=== PATIENT | male | born 1965 | race Caucasian/White ===

== ENCOUNTER 2016-11-07 17:57 | Inpatient (IN) | payer OTHER ==
[2016-11-07] MEDS ORDERED: traMADol HCL 50 MG TABLET PO ONE (18:13)
[2016-11-07] MEDS ORDERED: KETOROLAC TROMETHAMINE 60 MG/2 ML VIAL IM ONE (18:13)
--- NOTE | 2016-11-07 18:18 | PDOC ---
History of Present Illness - General Chief Complaint: Injury Stated Complaint: WORK INJURY Time Seen by Provider: 11/07/16 18:07 History Source: Patient - History of Present Illness Occurred: reports: just prior to arrival Pain Location: reports: back, lower extremity Method of Injury: Yes: direct blow, other Past History - Past Medical History Allergies/Adverse Reactions: Allergies Allergy/AdvReac Type Severity Reaction Status Date / Time No Known Allergies Allergy Verified 11/07/16 18:01 Home Medications: Ambulatory Orders Aspirin [ASA -] 81 mg PO DAILY 02/15/15 Atorvastatin Ca [Lipitor] 80 mg PO HS 02/15/15 Clopidogrel Bisulfate [Clopidogrel] 75 mg PO DAILY 02/15/15 Enalapril Maleate [Vasotec -] 10 mg PO DAILY 02/15/15 Folic Acid 1 mg PO DAILY 02/15/15 Gabapentin 300 mg PO DAILY 02/15/15 Glipizide [Glipizide ER] 5 mg PO DAILY 02/15/15 Hydrochlorothiazide [Hctz -] 25 mg PO DAILY 02/15/15 Insulin Glargine,Hum.rec.anlog [Lantus (10mL VIAL) -] 20 units SQ BID 02/15/15 Metoprolol Tartrate [Lopressor -] 25 mg PO DAILY 02/15/15 Omeprazole [Prilosec] 40 mg PO DAILY 02/15/15 Naproxen [Naprosyn -] 500 mg PO BID #60 tablet 11/09/16 Cardiac Disorders: Yes 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) Diabetes: Yes Disorders: Yes (kidney stones) HTN: Yes Hypercholesterolemia: Yes - Surgical History Appendectomy: Yes Cardiac Surgery: Yes (STENTS) - Psycho/Social/Smoking Cessation Hx Anxiety: No Suicidal Ideation: No Smoking History: Never smoked Have you smoked in the past 12 months: No Number of Cigarettes Smoked Daily: 10 If you are a former smoker, when did you quit?: 2013 Information on smoking cessation initiated: No Hx Alcohol Use: No Drug/Substance Use Hx: No Substance Use Type: None Hx Substance Use Treatment: No Review of Systems - Review of Systems Musculoskeletal: Yes: Back Pain, Joint Pain, Joint Swelling Neurological: No: Numbness, Tingling, Weakness *Physical Exam - Vital Signs Last Vital Signs Temp Pulse Resp BP Pulse Ox 98.6 F 90 18 146/93 100 11/07/16 18:01 11/07/16 18:01 11/07/16 18:01 11/07/16 18:01 11/07/16 18:01 - Physical Exam Comments: 11/07/16 20:40 Appears very uncomfortable, lying on stretcher and unable to sit/stand up General Appearance: Yes: Appropriately Dressed, Severe Distress HEENT: positive: Normal Voice Neck: positive: Supple Respiratory/Chest: negative: Respiratory Distress Musculoskeletal: positive: Other (ttp over R lower back) Extremity: positive: Swelling (minimal swelling w/ ecchymosis over distal R 4th and 5th metatarsal) Integumentary: positive: Dry, Warm Neurologic: positive: Fully Oriented, Alert, Normal Mood/Affect, Motor Strength 07/26 ED Treatment Course - LABORATORY CBC & Chemistry Diagram: 11/07/16 22:25 11/07/16 22:25 - RADIOLOGY Radiology Studies Ordered: Category Date Time Status FOOT-RIGHT [RAD] Stat Radiology 11/07/16 18:13 Ordered SPINE-LUMBAR SACRAL [RAD] Stat Radiology 11/07/16 18:12 Ordered Medical Decision Making - Medical Decision Making 11/07/16 18:14 51 yo M, h/o DM and HTN here w/ severe lower back pain and foot pain s/p injury at work today. 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 Developed severe R lower back pain immediately and hasn't been able to move or ambulate since. No LE weakness, saddle anesthesia or B/B incontinence. Also reports pain to R foot See exam Back injury w/ inability to ambulate No LE weakness, saddle anesthesia or incontinence to suspect cauda equina at this time -pain control -XR r/o compression fx and foot Crush injury to R foot -pain control -XR 11/07/16 18:18 11/07/16 18:55 XRs negative for fracture. Pt given tramadol and flexeril, will reassess 11/07/16 19:34 Pt continues to c/o severe back pain with movement. Neuro remains intact. Will continue to manage pain and reassess 11/07/16 20:00 11/07/16 20:00 Pt not better w/ morphine. May need further imaging and admission for pain control at this point. Pt signed out to JACOB Arevalo. 11/07/16 20:41 11/12/16 11:48 11/12/16 11:49 *DC/Admit/Observation/Transfer Diagnosis at time of Disposition: Intractable back pain - Discharge Dispostion Disposition: HOME Condition at time of disposition: Good - Prescriptions
[2016-11-07] MEDS ORDERED: CYCLOBENZAPRINE HCL 10 MG TABLET (FP) PO ONE (18:34)
[2016-11-07] MEDS ORDERED: CYCLOBENZAPRINE HCL 10 MG TABLET (FP) ONE (18:40)
[2016-11-07] MEDS ORDERED: morphine CARPU-JECT 4 MG/1 ML DISP.SYRIN IM ONE (19:16)
[2016-11-07] MEDS ORDERED: morphine CARPU-JECT 4 MG/1 ML DISP.SYRIN ONE (19:32)
[2016-11-07] MEDS ORDERED: IBUPROFEN 400 MG TABLET (FP) PO ONE (20:00)
--- NOTE | 2016-11-07 20:13 | PDOC ---
*Physical Exam - Vital Signs Last Vital Signs Temp Pulse Resp BP Pulse Ox 98.6 F 90 18 146/93 100 11/07/16 18:01 11/07/16 18:01 11/07/16 18:01 11/07/16 18:01 11/07/16 18:01 - Physical Exam Comments: 11/07/16 20:13 Sign-out received from fast tract provider Titi. Pt interviewed and examined. Ancillary studies reviewed. Patient is a 51 yo M with hx of HTN, HLD, DM, CVA (with residual left arm and leg numbness), and kidney stones. -0.5 mg Dilaudid IV Awaiting lumbar spine CT. CT spine negative for fracture or malignment. Patient reassessed; still with significant pain and is unable to ambulate. Will admit for intractable back pain. 11/08/16 00:16 Patient's PCP is Dr. Dmitry Maria, Dr. Fortunato valenzuela. ED Treatment Course - LABORATORY CBC & Chemistry Diagram: 11/07/16 22:25 11/07/16 22:25 - RADIOLOGY Radiology Studies Ordered: Category Date Time Status LUMBAR SPINE CT W/O CONTRAST [CT] Stat CT Scan 11/07/16 19:58 Ordered - Medications Given in the ED: ED Medications Discontinued Medications Generic Name Dose Route Start Last Admin Trade Name Kennedyq PRN Reason Stop Dose Admin Cyclobenzaprine HCl 10 mg 11/07/16 18:34 11/07/16 18:42 Flexeril - PO 11/07/16 18:35 10 mg ONCE ONE Administration Morphine Sulfate 4 mg 11/07/16 19:16 11/07/16 19:37 Morphine Injection - IM 11/07/16 19:17 4 mg ONCE ONE Administration Tramadol HCl 50 mg 11/07/16 18:13 11/07/16 18:19 Ultram - PO 11/07/16 18:14 50 mg ONCE ONE Administration *DC/Admit/Observation/Transfer Diagnosis at time of Disposition: Intractable back pain - Discharge Dispostion Admit: Yes
[2016-11-07] MEDS ORDERED: HYDROmorphone HCL CARPU-JECT 1 MG/1 ML DISP.SYRIN IVPUSH ONE ×2 (20:27→23:52)
[2016-11-07 22:34] LABS: BASOPHIL 1.2 % (0-2.0); EOSINOPHIL 10.3 % (0-4.5); MCH 30.1 pg (25.7-33.7); MCHC 34.8 g/dl (32.0-35.9); MEAN CELL VOLUME 86.7 fl (80-96); MEAN PLT VOLUME 8.1 fl (7.5-11.1); NEUTROPHILS 53.8 % (42.8-82.8); PLATELET COUNT 280 K/MM3 (134-434); WHITE BLOOD COUNT 10.8 K/mm3 (4.0-10.0)
[2016-11-07 23:01] LABS: ALBUMIN 4.1 g/dl (3.4-5.0); ALK PHOS 74 U/L (45-117); ANION GAP 7 (8-16); BILIRUBIN,TOTAL 0.3 mg/dL (0.2-1.0); CALCIUM 9.1 mg/dL (8.5-10.1); CO2 28 mmol/L (21-32); CREATININE 1.2 mg/dL (0.7-1.3); GLUCOSE,RANDOM 260 mg/dL (74-106); SGOT/AST 13 U/L (15-37); SGPT/ALT 41 U/L (12-78); TOT PROT 7.3 g/dl (6.4-8.2)
[2016-11-08] MEDS ORDERED: HYDROmorphone HCL CARPU-JECT 1 MG/1 ML DISP.SYRIN ONE (00:21)
[2016-11-08 03:19] VITALS: BMI 33.5
--- NOTE | 2016-11-08 09:44 | CONSULT ---
Consult - text type - Consultation Consultation Note: Neurology History of Present Illness 51 yo M, h/o DM and HTN here w/ severe lower back pain and foot pain s/p injury at work today. 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 Developed severe R lower back pain immediately and hasn't been able to move or ambulate since. No LE weakness, saddle anesthesia or B/B incontinence. Has been getting pain medication and reports improvement in pain. Is able to slowly sit up and then ambulate with caution. Reviewed CT L spine and did not show fracture or dislocation. Past History - Past Medical History Allergies/Adverse Reactions: Allergies Allergy/AdvReac Type Severity Reaction Status Date / Time No Known Allergies Allergy Verified 11/07/16 18:01 Home Medications: Ambulatory Orders Aspirin [ASA -] 81 mg PO DAILY 02/15/15 Atorvastatin Ca [Lipitor] 80 mg PO HS 02/15/15 Clopidogrel Bisulfate [Clopidogrel] 75 mg PO DAILY 02/15/15 Enalapril Maleate [Vasotec -] 10 mg PO DAILY 02/15/15 Folic Acid 1 mg PO DAILY 02/15/15 Gabapentin 300 mg PO DAILY 02/15/15 Glipizide [Glipizide ER] 5 mg PO DAILY 02/15/15 Hydrochlorothiazide [Hctz -] 25 mg PO DAILY 02/15/15 Insulin Glargine,Hum.rec.anlog [Lantus (10mL VIAL) -] 20 units SQ BID 02/15/15 Metoprolol Tartrate [Lopressor -] 25 mg PO DAILY 02/15/15 Omeprazole [Prilosec] 40 mg PO DAILY 02/15/15 Cardiac Disorders: Yes 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) Diabetes: Yes Disorders: Yes (kidney stones) HTN: Yes Hypercholesterolemia: Yes - Surgical History Appendectomy: Yes Cardiac Surgery: Yes (STENTS) - Psycho/Social/Smoking Cessation Hx Anxiety: No Suicidal Ideation: No Smoking History: Never smoked Have you smoked in the past 12 months: No Number of Cigarettes Smoked Daily: 10 If you are a former smoker, when did you quit?: 2013 Information on smoking cessation initiated: No Hx Alcohol Use: No Drug/Substance Use Hx: No Substance Use Type: None Hx Substance Use Treatment: No Review of Systems - Review of Systems Musculoskeletal: Yes: Back Pain, Joint Pain, Joint Swelling Neurological: No: Numbness, Tingling, Weakness All others negative *Physical Exam - Vital Signs Last Vital Signs Temp Pulse Resp BP Pulse Ox 98.6 F 90 18 146/93 100 11/07/16 18:01 11/07/16 18:01 11/07/16 18:01 11/07/16 18:01 11/07/16 18:01 Appears very uncomfortable, lying on stretcher and unable to sit/stand up General Appearance: Yes: Appropriately Dressed, Severe Distress HEENT: positive: Normal Voice Neck: positive: Supple Respiratory/Chest: negative: Respiratory Distress Musculoskeletal: positive: Other (ttp over R lower back) Extremity: positive: Swelling (minimal swelling w/ ecchymosis over distal R 4th and 5th metatarsal) Integumentary: positive: Dry, Warm Neurologic: positive: Fully Oriented, Alert, Normal Mood/Affect, Motor Strength 5/5 with best effort, sensory intact, CN normal CBCD WBC 10.8 K/mm3 (4.0-10.0) H 11/07/16 22:25 RBC 4.41 M/mm3 (4.00-5.60) 11/07/16 22:25 Hgb 13.3 GM/dL (11.7-16.9) 11/07/16 22:25 Hct 38.2 % (35.4-49) 11/07/16 22:25 MCV 86.7 fl (80-96) 11/07/16 22:25 MCHC 34.8 g/dl (32.0-35.9) 11/07/16 22:25 RDW 13.0 % (11.9-15.9) 11/07/16 22:25 Plt Count 280 K/MM3 (134-434) 11/07/16 22:25 MPV 8.1 fl (7.5-11.1) 11/07/16 22:25 CMP Sodium 134 mmol/L (136-145) L 11/07/16 22:25 Potassium 3.9 mmol/L (3.5-5.1) 11/07/16 22:25 Chloride 99 mmol/L (98-107) 11/07/16 22:25 Carbon Dioxide 28 mmol/L (21-32) D 11/07/16 22:25 Anion Gap 7 (8-16) L 11/07/16 22:25 BUN 26 mg/dL (7-18) H D 11/07/16 22:25 Creatinine 1.2 mg/dL (0.7-1.3) D 11/07/16 22:25 Creat Clearance w eGFR > 60 (>60) 11/07/16 22:25 Calcium 9.1 mg/dL (8.5-10.1) 11/07/16 22:25 Total Bilirubin 0.3 mg/dL (0.2-1.0) 11/07/16 22:25 AST 13 U/L (15-37) L 11/07/16 22:25 ALT 41 U/L (12-78) D 11/07/16 22:25 Alkaline Phosphatase 74 U/L (45-117) D 11/07/16 22:25 Total Protein 7.3 g/dl (6.4-8.2) 11/07/16 22:25 Albumin 4.1 g/dl (3.4-5.0) 11/07/16 22:25 Medical Decision Making 51 yo M, h/o DM and HTN here w/ severe lower back pain and foot pain s/p injury at work today. 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 Developed severe R lower back pain immediately and hasn't been able to move or ambulate since. No LE weakness, saddle anesthesia or B/B incontinence. Has been getting pain medication and reports improvement in pain. Is able to slowly sit up and then ambulate with caution. Reviewed CT L spine and did not show fracture or dislocation. -Will benefit from physical therapy, inpatient if able, but outpatient recommended -Pain medication/pain mgmt consult to optimize regiment but avoid polypharmacy -Agree with Cyclobenzaprine and gabapentin, defer opiods to pain mgmt physician -L spine CT reviewed, will not require MRI at this point -Fall precautions -Monitor glucose, goal A1C < 6, continue Insulin, glipizide -BP control, goal < 140/90, continue enalapril
[2016-11-08] MEDS ORDERED: PT OWN MED DRAWER 7, Y5N ONE (10:13)
[2016-11-08] MEDS: METOPROLOL TARTRATE 25 MG TABLET (FP) PO SCH (10:14)
[2016-11-08] MEDS: HYDROCHLOROTHIAZIDE 25 MG TABLET (FP) PO SCH (10:14)
[2016-11-08] MEDS: GABAPENTIN 300 MG CAPSULE (FP) PO SCH (10:14)
[2016-11-08] MEDS: ASPIRIN 81 MG CHEWABLE TABLETS PO SCH (10:14)
[2016-11-08] MEDS: PANTOPRAZOLE 40 MG TABLET (FP) PO SCH (10:14)
[2016-11-08] MEDS: CLOPIDOGREL BISULFATE 75 MG TABLET (FP) PO SCH (10:14)
[2016-11-08] MEDS: FOLIC ACID 1 MG TABLET (FP) PO SCH (10:14)
[2016-11-08] MEDS: INSULIN DETEMIR 100 UNITS/ML MDV SQ SCH ×2 (10:15→16:32)
[2016-11-08] MEDS: morphine CARPU-JECT 4 MG/1 ML DISP.SYRIN IM PRN (10:46)
[2016-11-08] MEDS ORDERED: INSULIN (NOVOLOG) ASPART 100 UNITS/ML 10ML VIAL ONE ×3 (10:54→21:14)
[2016-11-08] MEDS: INSULIN SLIDING SCALE (NOVOLOG) 1 VIAL SQ SCH ×3 (10:55→21:16)
[2016-11-08] MEDS: ENALAPRIL MALEATE 10 MG TABLET (FP) PO SCH (10:58)
[2016-11-08] MEDS: glipiZIDE-XL 5 MG TAB.ER.24 PO SCH (10:58)
--- NOTE | 2016-11-08 18:57 | CONSULT ---
Consult Consult Specialty:: back pain Referred by:: dr marie - History of Present Illness Chief Complaint: back pain History of Present Illness: 51 yo M, h/o DM and HTN here w/ severe lower back pain and foot pain s/p injury at work today. 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 Developed severe R lower back pain immediately and hasn't been able to move or ambulate since. CT scan shows no fractures or herniated discs Currently he reports feeling slightly better. - Alcohol/Substance Use Hx Alcohol Use: No - Smoking History Smoking history: Never smoked Have you smoked in the past 12 months: No Aproximately how many cigarettes per day: 10 If you are a former smoker, when did you quit?: 2013 Home Medications - Allergies Allergies/Adverse Reactions: Allergies Allergy/AdvReac Type Severity Reaction Status Date / Time No Known Allergies Allergy Verified 11/07/16 18:01 - Home Medications Home Medications: Ambulatory Orders Aspirin [ASA -] 81 mg PO DAILY 02/15/15 Atorvastatin Ca [Lipitor] 80 mg PO HS 02/15/15 Clopidogrel Bisulfate [Clopidogrel] 75 mg PO DAILY 02/15/15 Enalapril Maleate [Vasotec -] 10 mg PO DAILY 02/15/15 Folic Acid 1 mg PO DAILY 02/15/15 Gabapentin 300 mg PO DAILY 02/15/15 Glipizide [Glipizide ER] 5 mg PO DAILY 02/15/15 Hydrochlorothiazide [Hctz -] 25 mg PO DAILY 02/15/15 Insulin Glargine,Hum.rec.anlog [Lantus (10mL VIAL) -] 20 units SQ BID 02/15/15 Metoprolol Tartrate [Lopressor -] 25 mg PO DAILY 02/15/15 Omeprazole [Prilosec] 40 mg PO DAILY 02/15/15 Physical Exam Vital Signs: Vital Signs Temperature 97.8 F 11/08/16 14:00 Pulse Rate 60 11/08/16 14:00 Respiratory Rate 17 11/08/16 14:00 Blood Pressure 101/56 11/08/16 14:00 O2 Sat by Pulse Oximetry (%) 97 11/08/16 09:00 Musculoskeletal: Yes: Back Pain Assessment/Plan Lumbar sprain injury 1. Physical therapy x4 weeks 2. NSAIDs prn pain 3. Muscle relaxant prn pain 4. If patient continues to have pain after PT for 4 weeks consider lumbar spine facet blocks.
--- NOTE | 2016-11-08 19:58 | HP ---
Admitting History and Physical - Admission History of Present Illness: Pt is a 51 y/o male w/ PMH significant for HTN, HLD, DM, CVA (with residual left arm and leg numbness), and kidney stones. Pt was at work when and states a piece of heavy machinery weighing ~500 pounds fell and that he attempted to catch it with hands briefly but that it eventually fell onto R foot. Developed severe R lower back pain immediately and hasn't been able to move or ambulate since. CT scan of LS pine was done wc did not show dominic cute pathology. 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 Cardiovascular: Yes: HTN, Hyperlipdemia Endocrine: Yes: Diabetes Mellitus - Smoking History Smoking history: Never smoked Have you smoked in the past 12 months: No Aproximately how many cigarettes per day: 10 If you are a former smoker, when did you quit?: 2013 - Alcohol/Substance Use Hx Alcohol Use: No Home Medications - Allergies Allergies/Adverse Reactions: Allergies Allergy/AdvReac Type Severity Reaction Status Date / Time No Known Allergies Allergy Verified 11/07/16 18:01 - Home Medications Home Medications: Ambulatory Orders Aspirin [ASA -] 81 mg PO DAILY 02/15/15 Atorvastatin Ca [Lipitor] 80 mg PO HS 02/15/15 Clopidogrel Bisulfate [Clopidogrel] 75 mg PO DAILY 02/15/15 Enalapril Maleate [Vasotec -] 10 mg PO DAILY 02/15/15 Folic Acid 1 mg PO DAILY 02/15/15 Gabapentin 300 mg PO DAILY 02/15/15 Glipizide [Glipizide ER] 5 mg PO DAILY 02/15/15 Hydrochlorothiazide [Hctz -] 25 mg PO DAILY 02/15/15 Insulin Glargine,Hum.rec.anlog [Lantus (10mL VIAL) -] 20 units SQ BID 02/15/15 Metoprolol Tartrate [Lopressor -] 25 mg PO DAILY 02/15/15 Omeprazole [Prilosec] 40 mg PO DAILY 02/15/15 Naproxen [Naprosyn -] 500 mg PO BID #60 tablet 11/09/16 Family Disease History - Family Disease History Family History: Unremarkable Review of Systems - Review of Systems Constitutional: reports: No Symptoms Eyes: reports: No Symptoms HENT: reports: No Symptoms Neck: reports: No Symptoms Cardiovascular: reports: No Symptoms Respiratory: reports: No Symptoms Gastrointestinal: reports: No Symptoms Physical Examination Vital Signs: Vital Signs Temperature 97.8 F 11/08/16 14:00 Pulse Rate 60 11/08/16 14:00 Respiratory Rate 17 11/08/16 14:00 Blood Pressure 101/56 11/08/16 14:00 O2 Sat by Pulse Oximetry (%) 97 11/08/16 09:00 Constitutional: Yes: No Distress HENT: Yes: WNL, Atraumatic Neck: Yes: WNL, Supple Cardiovascular: Yes: WNL, Regular Rate and Rhythm Respiratory: Yes: WNL, Regular, CTA Bilaterally Gastrointestinal: Yes: WNL, Normal Bowel Sounds, Soft Extremities: Yes: Other ((+) abrasion w/ minimal swelling rt foot) Neurological: Yes: WNL, Alert, Oriented ...Motor Strength: WNL Problem List - Problems (1) Intractable back pain Assessment/Plan: Pain management If no improvement may need MRI LS spine Pain management/neuro consults Code(s): M54.9 - DORSALGIA, UNSPECIFIED (2) Diabetes Assessment/Plan: Cont meds Code(s): E11.9 - TYPE 2 DIABETES MELLITUS WITHOUT COMPLICATIONS (3) HTN (hypertension) Assessment/Plan: Cont antihypertensives BP stable Code(s): I10 - ESSENTIAL (PRIMARY) HYPERTENSION (4) Hyperlipidemia Code(s): E78.5 - HYPERLIPIDEMIA, UNSPECIFIED
[2016-11-08] MEDS ORDERED: ATORVASTATIN CA 80 MG TABLET (FP) PO SCH (22:00)
[2016-11-09] MEDS: INSULIN SLIDING SCALE (NOVOLOG) 1 VIAL SQ SCH ×3 (06:30→17:13)
[2016-11-09] MEDS: INSULIN DETEMIR 100 UNITS/ML MDV SQ SCH ×2 (06:31→17:13)
[2016-11-09] MEDS ORDERED: INSULIN (NOVOLOG) ASPART 100 UNITS/ML 10ML VIAL ONE ×3 (06:33→17:33)
[2016-11-09] MEDS ORDERED: PT OWN MED DRAWER 7, Y5N ONE (10:16)
[2016-11-09] MEDS: glipiZIDE-XL 5 MG TAB.ER.24 PO SCH (10:19)
[2016-11-09] MEDS: ENALAPRIL MALEATE 10 MG TABLET (FP) PO SCH (10:19)
[2016-11-09] MEDS: GABAPENTIN 300 MG CAPSULE (FP) PO SCH (10:19)
[2016-11-09] MEDS: HYDROCHLOROTHIAZIDE 25 MG TABLET (FP) PO SCH (10:19)
[2016-11-09] MEDS: PANTOPRAZOLE 40 MG TABLET (FP) PO SCH (10:19)
[2016-11-09] MEDS: FOLIC ACID 1 MG TABLET (FP) PO SCH (10:19)
[2016-11-09] MEDS: METOPROLOL TARTRATE 25 MG TABLET (FP) PO SCH (10:19)
[2016-11-09] MEDS: CLOPIDOGREL BISULFATE 75 MG TABLET (FP) PO SCH (10:19)
[2016-11-09] MEDS: ASPIRIN 81 MG CHEWABLE TABLETS PO SCH (10:22)
[2016-11-09 14:52] VITALS: BP 102/58; PULSE 63; TEMP 98.1
[2016-11-09] MEDS: morphine CARPU-JECT 4 MG/1 ML DISP.SYRIN IM PRN (16:11)
== END 2016-11-09 20:25 | disposition home or self-care (01) | DRG 347 ==
LOC: JERFT 17:57 → JERBED 11-08 00:47 → UNDOADMIN 11-08 00:53 → JERBED 11-08 00:53 → J6S 11-08 03:32
PROVIDERS: ADMIT Internal Medicine; ATTEND Internal Medicine
DX: S33.5XXA Sprain of ligaments of lumbar spine, initial encounter (principal); E11.9 Type 2 diabetes mellitus without complications; I10 Essential (primary) hypertension; E78.5 Hyperlipidemia, unspecified; M54.89 Other dorsalgia; N20.0 Calculus of kidney; Z86.73 Personal history of transient ischemic attack (TIA), and cerebral infarction without residual deficits; W20.8XXA Other cause of strike by thrown, projected or falling object, initial encounter; Y93.89 Activity, other specified; Y92.89 Other specified places as the place of occurrence of the external cause
CPT/HCPCS: 36415; 72100-TC; 72131-TC; 73630-TC-RT; 80053; 85025; 99283-25

== ENCOUNTER 2017-09-08 10:47 | Emergency (ER) | payer OTHER ==
[2017-09-08 11:03] VITALS: TEMP 98.2; BMI 33.7
[2017-09-08] MEDS ORDERED: SODIUM CHLORIDE 0.9% 1000 ML INFUS.BAG IV ONE (11:21)
[2017-09-08] MEDS ORDERED: ACETAMINOPHEN 1000 MG/100 ML VIAL (NON FORMULARY) IVPB ONE (11:36)
--- NOTE | 2017-09-08 11:52 | PDOC ---
Attending Attestation - [facility] HPI: 09/08/17 11:57 The patient is a 52 year old male, with a significant past medical history of diabetes, hypertension, hyperlipidemia, CAD(s/p stents), CVA(with residual left arm and leg numbness), and kidney stones, who presents to the emergency department with abdominal pain, nausea, vomiting, and diarrhea for approximately 1 week. Patient reports initially he had nausea and episodes of nonbloody/nonbilious vomiting. However, patient reports he then developed watery nonbloody diarrhea for the past several days. He reports up to 10 episodes of diarrhea daily. He reports abdominal pain for the past 5 days, which he reports is epigastric/RUQ. He denies any associated melena, or hematochezia. He denies any recent fever, chills, headache, or dizziness. He denies any dysuria, hematuria, frequency, or urgency. He denies any chest pain, shortness of breath, diaphoresis, or palpitations. He denies any recent travel or sick contacts. Allergies: NKDA Past Surgical History: Cardiac stents, Appendectomy Social History: Former smoker. No ETOH or recreational drug use. - Physicial Exam PE: 09/08/17 11:57 GENERAL: Awake, alert, and fully oriented, in no acute distress HEAD: No signs of trauma EYES: PERRLA, EOMI, sclera anicteric, conjunctiva clear ENT: Auricles normal inspection, hearing grossly normal, nares patent. Moist mucosa NECK: Normal ROM, supple, no lymphadenopathy, JVD, or masses LUNGS: Breath sounds equal, clear to auscultation bilaterally. No wheezes, and no crackles HEART: Regular rate and rhythm, normal S1 and S2, no murmurs, rubs or gallops ABDOMEN: +RUQ/epigastric tenderness. Soft, normoactive bowel sounds. No guarding, no rebound. No masses RECTAL: Defer to resident note. EXTREMITIES: Normal range of motion, no edema. No clubbing or cyanosis. No cords, erythema, or tenderness. DP/PT pulses 2+ and symmetric. Warm and well perfused. NEUROLOGICAL: Moves all extremities. Normal speech, normal gait SKIN: Warm, Dry, normal turgor, no rashes or lesions noted. - Medical Decision Making 09/08/17 11:57 Documentation prepared by Clif Shook, acting as medical technologist chemistry for Sofy Ashraf MD. <Clif Shook - Last Filed: 09/08/17 17:24> - Resident Resident Name: RoyerOsiris - ED Attending Attestation I have performed the following: I have examined & evaluated the patient, The case was reviewed & discussed with the resident, I agree w/resident's findings & plan, Exceptions are as noted - Medical Decision Making 09/08/17 14:3 pt with n/v diarrhea, vomiting resolved. epigastric ruq abd pain. started 1 week ago. vomiting only on day one. no f/c no sick contacts. no travel. no abx. differential gastritis, pancreatitis, cholecystitis cholelithiasis, colitis. viral syndrome. dehydration, electrolyte abnomrality. plan labs lipase. bedside gb us, antiemetics. iv hydration ua. focused ED us RUQ performed, indication pain, vomiting gb scanned in two planes. wall normal no edema or wall thickening. cbd normal no dilation. small stones < 2mm in size, neg sonographic camargo's impression: small cholelithiasis. plan ct a/p evalute cuase of pain. <Sofy Ashraf - Last Filed: 09/08/17 17:29> Heart Score/ECG Review #1 General ECG Interpretation: Sinus Rhythm, Normal Rate (70), Normal Intervals, No acute ischemic changes (TWI III only.) <Sofy Ashraf - Last Filed: 09/08/17 17:29> ED Treatment Course - LABORATORY CBC & Chemistry Diagram: 09/08/17 12:00 09/08/17 12:00 - ADDITIONAL ORDERS Additional order review: Laboratory Results 09/08/17 09/08/17 09/08/17 13:02 13:02 12:00 PT with INR 12.50 INR 1.11 Sodium 137 Potassium 4.1 Chloride 103 Carbon Dioxide 26 Anion Gap 8 BUN 9 D Creatinine 0.9 D Creat Clearance w eGFR > 60 Random Glucose 146 H D Calcium 8.7 Total Bilirubin 0.3 AST 13 L ALT 25 D Alkaline Phosphatase 63 Total Protein 6.9 Albumin 3.4 Lipase 106 Blood Type A POSITIVE Antibody Screen Negative 09/08/17 12:00 RBC 4.44 MCV 88.5 MCHC 33.3 RDW 13.8 MPV 7.9 Neutrophils % 71.4 D Lymphocytes % 12.9 D Monocytes % 10.2 Eosinophils % 5.1 H Basophils % 0.4 - RADIOLOGY Radiograph Interpretation: 09/08/17 17:25 EXAM: CT Abdomen and Pelvis INTERPRETED BY: Dr. Quick REVIEWED BY: Dr. Ashraf IMPRESSION: Diffuse colitis, worse in the right colon and with pericolonic inflammatory changes extending to near the gallbladder. The gallbladder itself appears intrinsically normal. No free air or abscess identified. Fatty liver. Probable splenic cysts. Other findings as above. Clinical correlation advised. EXAM: CXR INTERPRETED BY: Dr. Sandoval REVIEWED BY: Dr. Ashraf IMPRESSION: No acute pathology. No significant change since 2014 exam - Medications Given in the ED: ED Medications Discontinued Medications Generic Name Dose Route Start Last Admin Trade Name Mitzi PRN Reason Stop Dose Admin Acetaminophen 1,000 mg 09/08/17 11:36 09/08/17 12:23 Ofirmev Injection - IVPB 09/08/17 11:37 1,000 mg ONCE ONE Administration Famotidine/Sodium Chloride 20 mg in 50 mls @ 100 mls/hr 09/08/17 13:45 16:36 Pepcid 20 Mg Premixed Ivpb - IVPB 09/08/17 14:14 100 mls/hr ONCE ONE Administration Sodium Chloride 1,000 ml 09/08/17 11:21 09/08/17 12:01 Normal Saline - IV 09/08/17 11:22 1,000 ml ONCE ONE Administration <Clif Shook - Last Filed: 09/08/17 17:24> - LABORATORY CBC & Chemistry Diagram: 09/08/17 12:00 09/08/17 12:00 <Sofy Ashraf - Last Filed: 09/08/17 17:29>
--- NOTE | 2017-09-08 12:09 | PDOC ---
History of Present Illness - General Chief Complaint: Pain, Acute Stated Complaint: ABD PAIN Time Seen by Provider: 09/08/17 11:25 History Source: Patient Exam Limitations: No Limitations - History of Present Illness Initial Comments: This is a 52 YOM with h/o IDDM, CAD s/p stent placement, HTN, HLD, and appendectomy who p/w 6 days of black diarrhea (10 episodes/day), nausea/vomiting , and 5 days of epigastric and RUQ pain fluctuating up to 10/10, radiating straight to his back and worsening with eating any food. He has not taken pain medications for his symptoms and has never had these symptoms before. He additionally notes mild lightheadedness and headache. He has not noticed blood in the stool, his last BM was this morning and was black, and he denies fever, chills, skin color changes, confusion, or other symptoms. Past History - Past Medical History Allergies/Adverse Reactions: Allergies Allergy/AdvReac Type Severity Reaction Status Date / Time No Known Allergies Allergy Verified 09/08/17 11:00 Home Medications: Ambulatory Orders Aspirin [ASA -] 81 mg PO DAILY 02/15/15 Atorvastatin Ca [Lipitor] 80 mg PO HS 02/15/15 Clopidogrel Bisulfate [Clopidogrel] 75 mg PO DAILY 02/15/15 Enalapril Maleate [Vasotec -] 10 mg PO DAILY 02/15/15 Folic Acid 1 mg PO DAILY 02/15/15 Gabapentin 300 mg PO DAILY 02/15/15 Glipizide [Glipizide ER] 5 mg PO DAILY 02/15/15 Hydrochlorothiazide [Hctz -] 25 mg PO DAILY 02/15/15 Insulin Glargine,Hum.rec.anlog [Lantus (10mL VIAL) -] 20 units SQ BID 02/15/15 Metoprolol Tartrate [Lopressor -] 25 mg PO DAILY 02/15/15 Omeprazole [Prilosec] 40 mg PO DAILY 02/15/15 Naproxen [Naprosyn -] 500 mg PO BID #60 tablet 11/09/16 Ciprofloxacin HCl [Cipro] 500 mg PO BID #20 tablet 09/08/17 metroNIDAZOLE [Flagyl -] 500 mg PO TID #30 tablet 09/08/17 Anemia: No Asthma: No Cardiac Disorders: Yes 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) COPD: No CHF: No Dementia: No Diabetes: Yes Disorders: Yes (kidney stones) HTN: Yes Hypercholesterolemia: Yes Seizures: No - Surgical History Appendectomy: Yes Cardiac Surgery: Yes (STENTS) - Suicide/Smoking/Psychosocial Hx Smoking History: Current every day smoker Have you smoked in the past 12 months: Yes Number of Cigarettes Smoked Daily: 10 If you are a former smoker, when did you quit?: 2013 Information on smoking cessation initiated: Yes 'Breaking Loose' booklet given: 09/08/17 Hx Alcohol Use: No Drug/Substance Use Hx: No Substance Use Type: None Hx Substance Use Treatment: No Review of Systems - Review of Systems Able to Perform ROS?: Yes Constitutional: No: Chills, Fever, Unexplained wgt Loss HEENTM: No: Nose Congestion, Throat Pain Respiratory: No: Cough, Shortness of Breath Cardiac (ROS): No: Chest Pain, Palpitations ABD/GI: Yes: Diarrhea, Nausea, Vomiting, Other (black stool, abdominal pain). No: Constipated : No: Burning, Dysuria Musculoskeletal: No: Back Pain, Neck Pain Integumentary: No: Bruising, Rash Neurological: No: Headache, Numbness, Tingling, Weakness, Dizziness Endocrine: No: Unexplained Weight Gain, Unexplained Weight Loss *Physical Exam - Vital Signs Last Vital Signs Temp Pulse Resp BP Pulse Ox 98.2 F 83 19 120/62 98 09/08/17 11:00 09/08/17 11:00 09/08/17 11:00 09/08/17 11:00 09/08/17 11:00 - Physical Exam General Appearance: Yes: Nourished, Obese (nontoxic appearing adult male who is alert, oriented, conversive, [place] speaking, answering questions appropriately ), Other. No: Apparent Distress HEENT: positive: EOMI, JOVANNY, Normal Voice, Hearing Grossly Normal. negative: Scleral Icterus (R), Scleral Icterus (L), Nasal Congestion Neck: positive: Trachea midline, Supple. negative: Tender, Rigid Respiratory/Chest: positive: Lungs Clear, Normal Breath Sounds. negative: Respiratory Distress, Crackles, Rhonchi, Stridor, Wheezing Cardiovascular: positive: Regular Rhythm, Regular Rate, S1, S2. negative: Edema , JVD, Murmur Gastrointestinal/Abdominal: positive: Normal Bowel Sounds, Tender (RUQ and epigastric mild ttp with +Reeves's sign), Soft. negative: Organomegaly, Pulsatile Mass, Guarding Rectal Exam: positive: other (small amount of medium brown blood in rectal vault ) Musculoskeletal: positive: Normal Inspection. negative: Decreased Range of Motion, Vertebral Tenderness Extremity: positive: Normal Capillary Refill, Normal Inspection, Normal Range of Motion. negative: Tender, Cyanosis Integumentary: positive: Normal Color, Dry, Warm. 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 Initial Vital Signs Temp Pulse Resp BP Pulse Ox 98.2 F 83 19 120/62 98 09/08/17 11:00 09/08/17 11:00 09/08/17 11:00 09/08/17 11:00 09/08/17 11:00 Exam: RUQ and epigastric ttp with positive Reeves's sign, no midline pulsatile mass, no peritoneal signs, brown stool without blood in rectal vault. DDX IBNLT: cholecystitis (calculous vs. acalculous), choledocholithiasis, cholangitis, pancreatitis, gastritis, PUD, colitis, diverticulitis wwo abscess or perforation, AAA/AD, ACS, renal colic, obstructive uropathy, UTI/ pyelonephritis, hernia, SBO, mesenteric/bowel ischemia, bowel perforation, malignancy, testicular torsion, epididymitis, orchitis, urethritis, constipation , gas, musculoskeletal, etc. W/U ordered: CBCD CMP Mg Phos Lipase Lactate Troponin CK CKMB Coags T&S UA UCx EKG CXR CT A/P w/ Contrast TX ordered: IVF Ofirmev Pepcid On my bedside US with Dr. Ashraf, there are possible small stones within the GB not in the neck. No wall thickening, no distention, CBD diameter is 0.25, no pericholecystic fluid. EKG: NSR rate 70 normal axis and intervals (HVw=199) no ischemic changes, normal EKG CXR: NADP Laboratory Tests 09/08/17 09/08/17 09/08/17 12:00 12:00 13:02 WBC 10.0 RBC 4.44 Hgb 13.1 Hct 39.3 MCV 88.5 MCH 29.5 MCHC 33.3 RDW 13.8 Plt Count 299 MPV 7.9 Absolute Neuts (auto) 7.2 Neutrophils % 71.4 D Lymphocytes % 12.9 D Monocytes % 10.2 Eosinophils % 5.1 H Basophils % 0.4 Nucleated RBC % 0 PT with INR 12.50 INR 1.11 Sodium 137 Potassium 4.1 Chloride 103 Carbon Dioxide 26 Anion Gap 8 BUN 9 D Creatinine 0.9 D Creat Clearance w eGFR > 60 Random Glucose 146 H D Calcium 8.7 Total Bilirubin 0.3 AST 13 L ALT 25 D Alkaline Phosphatase 63 Total Protein 6.9 Albumin 3[address] A/P: Diffuse colitis with right>left, probable splenic cysts, fatty liver. Reassessment: Minimal tenderness, states pain much improved, wants to go home. Vital Signs Temperature 98.2 F 09/08/17 11:00 Pulse Rate 84 09/08/17 18:04 Respiratory Rate 18 09/08/17 18:04 Blood Pressure 119/74 09/08/17 18:04 O2 Sat by Pulse Oximetry (%) 100 09/08/17 18:04 The Pt has gotten significant relief of symptoms with ED medications. Workup is not concerning for emergency-level pathology at this time. They are appropriate for discharge with close outpatient follow up. They are comfortable with this plan and will follow up with their PCP tomorrow morning at 10 am. They will take Motrin and/or Tylenol for pain. They are given a dose each of Levofloxacin and Flagyl here in the ED and will burr picker E-Rx (Cipro and Flagyl). Specific return precautions are discussed and they will come back to the ER if necessary. *DC/Admit/Observation/Transfer Diagnosis at time of Disposition: Colitis - Discharge Dispostion Disposition: HOME Condition at time of disposition: Stable Decision to Admit order: No - Prescriptions Prescriptions: Ciprofloxacin HCl [Cipro] 500 mg PO BID #20 tablet metroNIDAZOLE [Flagyl -] 500 mg PO TID #30 tablet - Referrals Referrals: Dmitry Maria MD [Primary Care Provider] - - Patient Instructions Printed Discharge Instructions: DI for Colitis Additional Instructions: You were seen in the ER for diarrhea, abdominal pain, and vomiting. We did lab work on your blood and urine, an EKG, a chest x-ray, and a CT scan of your abdomen. You have an infection of the intestines, and you need antibiotics. We gave you the first doses here in the department. After our assessment, we do not believe you are having a medical emergency at this time, and we believe you are safe to go home. Please burr picker the prescriptions for your two antibiotics from your pharmacy, and take the entire courses as directed on the medication labels. Finish these antibiotics even if you feel better. Follow up in Dr. Dmitry Maria's office tomorrow morning at 10 am (they are expecting you there at that time). Please come back to the ER at any time, 24 hours a day, for any new or worsening symptoms, like worsened abdominal pain, fever, inability to have a bowel movement or pass gas, chest pain, palpitations, or other symptoms. If you are having severe or life threatening symptoms, or symptoms that make it unsafe to drive or have someone drive you, please call 911. Que fueron atendidos en la rock de urgencias por diarrea, dolor abdominal y vmitos. Hicimos el trabajo de laboratorio en bermudez josé miguel y orina, un electrocardiograma, sherlyn radiografa de trax y sherlyn tomografa computarizada del abdomen. Usted tiene sherlyn infeccin de los intestinos, y necesita antibiticos. Le dimos la primera dosis aqu en el departamento. Despus de nuestra evaluacin , no creemos que tiene sherlyn urgencia mdica en tosha momento, y creemos que son seguras para ir a casa. Por favor recoger las recetas para uvaldo dos antibiticos a bermudez farmacia, y valentin la totalidad de los cursos tiffanie se indica en la etiqueta del medicamento. Finalizar dichos antibiticos, incluso si se siente mejor. Seguimiento en la oficina del Dr. Dmitry fung por la maana a las 10 am (estn esperando all en deniz momento). Por favor, vuelva a la rock de urgencias en cualquier momento, las 24 horas del da, para cualquier nueva o empeoramiento de los sntomas empeoraron, tiffanie dolor abdominal, fiebre, incapacidad para tener un movimiento intestinal o pasar el gas, dolor en el pecho, palpitaciones u otros sntomas. Si tiene sntomas graves o potencialmente mortales, o los sntomas que lo hacen inseguro para conducir o tener alguien que, por favor, llame al 911. Print Language: PAKISTANI - Post Discharge Activity
[2017-09-08] MEDS ORDERED: ACETAMINOPHEN INJECTION 100 ML IVPB ONE (12:13)
[2017-09-08 12:17] LABS: BASO % 0.4 % (0-2.0); EOS % 5.1 % (0-4.5); HEMATOCRIT 39.3 % (35.4-49); HEMOGLOBIN 13.1 GM/dL (11.7-16.9); LYMPH % 12.9 % (8-40); MCH 29.5 pg (25.7-33.7); MCHC 33.3 g/dl (32.0-35.9); MEAN CELL VOLUME 88.5 fl (80-96); MEAN PLT VOLUME 7.9 fl (7.5-11.1); MONO % 10.2 % (3.8-10.2); NEUT % 71.4 % (42.8-82.8); PLATELET COUNT 299 K/MM3 (134-434); RBC 4.44 M/mm3 (4.00-5.60); RDW 13.8 % (11.9-15.9)
[2017-09-08 12:38] LABS: ALBUMIN 3.4 g/dl (3.4-5.0); ANION GAP 8 (8-16); BLOOD UREA NITROGEN 9 mg/dL (7-18); CALCIUM 8.7 mg/dL (8.5-10.1); CHLORIDE 103 mmol/L (98-107); CO2 26 mmol/L (21-32); CREATININE 0.9 mg/dL (0.7-1.3); GLUCOSE,RANDOM 146 mg/dL (74-106); LIPASE 106 U/L (73-393); POTASSIUM 4.1 mmol/L (3.5-5.1); SGOT/AST 13 U/L (15-37); SGPT/ALT 25 U/L (12-78); SODIUM 137 mmol/L (136-145)
[2017-09-08 12:39] LABS: ALK PHOS 63 U/L (45-117); BILIRUBIN,TOTAL 0.3 mg/dL (0.2-1.0); TOT PROT 6.9 g/dl (6.4-8.2)
[2017-09-08 13:32] LABS: INR 1.11 (0.82-1.09); PROTHROMBIN TIME (PATIENT) 12.5 SEC (9.7-13.0)
[2017-09-08] MEDS ORDERED: FAMOTIDINE 20 MG/50 ML IVPB 20 MG/50 ML MG IVPB ONE ×2 (13:45→16:30)
--- NOTE | 2017-09-08 13:46 | EKG ---
Test Reason : Blood Pressure : / mmHG Vent. Rate : 070 BPM Atrial Rate : 070 BPM P-R Int : 146 ms QRS Dur : 084 ms QT Int : 430 ms P-R-T Axes : 053 079 028 degrees QTc Int : 464 ms NORMAL SINUS RHYTHM NORMAL ECG WHEN COMPARED WITH ECG OF 16-FEB-2015 09:43, NO SIGNIFICANT CHANGE WAS FOUND Confirmed by ANASTACIA JEROME MD ([id number]) on 09/08/2017 1:46:09 PM Referred By: Confirmed By:ANASTACIA JEROME MD
[2017-09-08] MEDS ORDERED: metroNIDAZOLE 250 MG TABLET PO ONE (16:55)
[2017-09-08] MEDS ORDERED: CIPROFLOXACIN 500 MG TABLET (RESTRICTED TO ID) PO ONE (16:55)
[2017-09-08] MEDS ORDERED: metroNIDAZOLE 250 MG TABLET ONE (17:52)
[2017-09-08 18:04] VITALS: BP 119/74; PULSE 84
== END 2017-09-08 18:04 | disposition home or self-care (01) ==
LOC: JER 10:47
PROC: 3E033GC Introduction of Other Therapeutic Substance into Peripheral Vein, Percutaneous Approach (ICD-10-PCS; principal; 2017-09-08)
PROC: 3E033NZ Introduction of Analgesics, Hypnotics, Sedatives into Peripheral Vein, Percutaneous Approach (ICD-10-PCS; 2017-09-08)
DX: K52.9 Noninfective gastroenteritis and colitis, unspecified (principal); I25.10 Atherosclerotic heart disease of native coronary artery without angina pectoris; I10 Essential (primary) hypertension; Z95.5 Presence of coronary angioplasty implant and graft; E11.9 Type 2 diabetes mellitus without complications; Z79.4 Long term (current) use of insulin; Z79.84 Long term (current) use of oral hypoglycemic drugs; E78.5 Hyperlipidemia, unspecified; I69.854 Hemiplegia and hemiparesis following other cerebrovascular disease affecting left non-dominant side
CPT/HCPCS: 36415; 71045-TC-FY; 74177-TC; 80053; 83690; 85025; 85610; 86850; 86900; 86901; 93005; 93010; 96365; 96375; 99282-25; J0131; J7030

== ENCOUNTER 2018-12-21 07:45 | Observation (INO) | payer OTHER ==
--- NOTE | 2018-12-21 07:59 | PDOC ---
History of Present Illness - General Chief Complaint: Chest Pain Stated Complaint: CHEST PAIN Time Seen by Provider: 12/21/18 07:58 History Source: Patient Exam Limitations: No Limitations - History of Present Illness Initial Comments: Pt is a 53 yo M, with PMH of HTN, HLD, IDDM, CAD (2 cardiac stents in 2012 at [place], L carotid stent, on Plavix), and nephrolithiasis, who is presenting with complaints of substernal chest pain x1 month which worsened today. Pt states the pain is worsened with lying down and taking deep breaths. Pt endorses association with radiation down the L arm, as well as light-headedness when the chest pain occurs, but without nausea/vomiting or diaphoresis. The pain occurs both on exertion and at rest. Pt denies any fevers/chills, headache, vision changes, syncope, palpitations, SOB, nausea/vomiting, abdominal pain, urinary symptoms, diarrhea/constipation, or leg swelling. Allergies: NKDA PCP: Dr. Dmitry Maria Cardiology: Unknown to pt Social: Pt smokes 1/2 ppd. Pt denies any alcohol or drug use. Pt denies any recent travel or sick contacts. Surgical: cardiac stents as above, L carotid stent, appendectomy Family: no relevant history. 12/21/18 09:11 12/21/18 09:17 Past History - Travel Traveled outside of the country in the last 30 days: No Close contact w/someone who was outside of country & ill: No - Past Medical History Allergies/Adverse Reactions: Allergies Allergy/AdvReac Type Severity Reaction Status Date / Time No Known Allergies Allergy Verified 09/08/17 11:00 Home Medications: Ambulatory Orders Aspirin [ASA -] 81 mg PO DAILY 02/15/15 Atorvastatin Ca [Lipitor] 80 mg PO HS 02/15/15 Clopidogrel Bisulfate [Clopidogrel] 75 mg PO DAILY 02/15/15 Folic Acid 1 mg PO DAILY 02/15/15 Gabapentin 300 mg PO DAILY 02/15/15 Metoprolol Tartrate [Lopressor -] 25 mg PO DAILY 02/15/15 Omeprazole [Prilosec] 40 mg PO DAILY 02/15/15 Insulin Degludec [Tresiba] 40 unit SQ AM 12/21/18 Losartan Potassium 100 mg PO DAILY 12/21/18 Sitagliptin Phos/Metformin HCl [Janumet 50-1,000 mg Tablet] 1,000 mg PO BID Anemia: No Asthma: No Cardiac Disorders: Yes 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) COPD: No CHF: No Dementia: No Diabetes: Yes (IDDM) Disorders: Yes (kidney stones) HTN: Yes Hypercholesterolemia: Yes Seizures: No - Surgical History Appendectomy: Yes Cardiac Surgery: Yes (2 CARDIAC STENTS PLACED) - Psycho Social/Smoking Cessation Hx Smoking History: Current every day smoker Have you smoked in the past 12 months: Yes Number of Cigarettes Smoked Daily: 10 If you are a former smoker, when did you quit?: 2013 'Breaking Loose' booklet given: 10/06/17 Hx Alcohol Use: No Drug/Substance Use Hx: No Substance Use Type: None Hx Substance Use Treatment: No Cardiac Specific PMH - Complaint Specific PMHX Abdominal Aortic Aneurysm: No Angina: No Cardiac Arrhythmia: No Cardiac Stent: Yes GERD: No Myocardial Infarction: No Pacemaker: No Pulmonary Embolus: No Valvular Heart Disease: No Peripheral Vascular Disease: No Review of Systems - Review of Systems Able to Perform ROS?: Yes Is the patient limited Turkish proficient: No Constitutional: Yes: Weight Stable. No: Chills, Diaphoresis, Fever, Loss of Appetite, Malaise, Weakness HEENTM: No: Recent change in vision, Nose Congestion, Throat Pain, Throat Swelling, Difficulty Swallowing Respiratory: No: Cough, Orthopnea, Shortness of Breath Cardiac (ROS): Yes: Chest Pain, Lightheadedness. No: Edema, Irregular Heart Rate, Palpitations, Syncope, Chest Tightness ABD/GI: No: Constipated, Diarrhea, Nausea, Poor Appetite, Poor Fluid Intake, Vomiting : No: Burning, Dysuria, Frequency, Flank Pain, Hematuria, Pain, Urgency Musculoskeletal: No: Back Pain, Muscle Weakness Integumentary: No: Rash Neurological: Yes: Paresthesia (Radiation down L arm with parasthesia). No: Headache, Numbness, Pre-Existing Deficit, Weakness, Unsteady Gait, Ataxia, Dizziness Psychiatric: No: Sleep Pattern Change, Change in Appetite Endocrine: No: Increased Urine, Change in Weight Hematologic/Lymphatic: No: Anemia, Blood Clots, Easy Bleeding, Easy Bruising All Other Systems: Reviewed and Negative *Physical Exam - Vital Signs Last Vital Signs Temp Pulse Resp BP Pulse Ox 98.1 F 69 20 150/81 98 12/21/18 08:04 12/21/18 08:04 12/21/18 08:04 12/21/18 08:04 12/21/18 08:04 - Physical Exam Comments: Vitals stable, pt afebrile. Pt in NAD, obese body habitus. Pt alert and oriented x3. 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 No midline spinal tenderness, step-offs, or crepitus. Head normocephalic, atraumatic. Eyes PERRLA, EOMI. Oropharynx without erythema or exudates, no LAD b/l. No nasal congestion. Hearing intact. Clear heart sounds, S1/S2, no JVD, b/l pedal edema, or heart murmur. No reproducible chest wall TTP, but splinting with deep breaths. Clear lung sounds, no respiratory distress, wheezes, crackles, or accessory muscle use. +Epigastric TTP. No CVA tenderness to palpation, no rebound, no guarding. Abdomen soft, non-distended, and with normoactive bowel sounds. Skin without jaundice or rash. 12/21/18 09:31 Heart Score/ECG Review - History History: Moderately suspicious - Electrocardiogram EKG: Normal - Age Age: 45-65 - Risk Factors Risk Factors Heart Score: Yes Hx Hypercholesterolemia, Yes Hx Hypertension, Yes Hx Diabetes, Yes Smoking History, Yes Positive family hx of cardiac disease Based on the list above the patient has:: >/=3 risk factors or Hx atherosclerotic disease - Troponin Troponin: </= normal limit - Score Heart Score - Total: 4 ED Treatment Course - LABORATORY CBC & Chemistry Diagram: 12/21/18 08:15 12/21/18 08:15 - ADDITIONAL ORDERS Additional order review: Laboratory Results 12/21/18 12/21/18 12/21/18 08:15 08:15 08:15 PT with INR 10.40 INR 0.88 PTT (Actin FS) 31.9 Sodium 136 Potassium 3.8 Chloride 102 Carbon Dioxide 26 Anion Gap 7 L BUN 18.7 H Creatinine 1.1 Est GFR (CKD-EPI)AfAm 89.61 Est GFR (CKD-EPI)NonAf 77.32 Random Glucose 234 H Calcium 9.1 Total Bilirubin 0.3 AST 13 L ALT 33 Alkaline Phosphatase 78 Creatine Kinase 203 Creatine Kinase Index 1.6 CK-MB (CK-2) 3.3 Troponin I < 0.02 Total Protein 7.1 Albumin 3.8 12/21/18 08:15 RBC 4.20 MCV 89.2 MCHC 34.6 RDW 13.2 MPV 7.9 Neutrophils % 68.7 Lymphocytes % 16.4 D Monocytes % 6.2 Eosinophils % 7.9 H Basophils % 0.8 - RADIOLOGY Radiology Studies Ordered: Category Date Time Status ABDOMEN/PELVIS CTA W/WO CONTR [CT] Stat CT Scan 12/21/18 09:24 Completed CHEST CTA [CT] Stat CT Scan 12/21/18 09:02 Completed - Medications Given in the ED: ED Medications Discontinued Medications Generic Name Dose Route Start Last Admin Trade Name Freq PRN Reason Stop Dose Admin Acetaminophen 1,000 mg 12/21/18 08:39 12/21/18 09:03 Ofirmev Injection - IVPB 12/21/18 08:40 1,000 mg ONCE ONE Administration Al Hydroxide/Mg Hydroxide 30 ml 12/21/18 08:39 12/21/18 09:03 Mylanta Oral Suspension - PO 12/21/18 08:40 30 ml ONCE ONE Administration Famotidine/Sodium Chloride 20 mg in 50 mls @ 100 mls/hr 12/21/18 08:39 09:03 Pepcid 20 Mg Premixed Ivpb - IVPB 12/21/18 09:08 100 mls/hr ONCE ONE Administration Sodium Chloride 1,000 mls @ 1,000 mls/hr 12/21/18 08:39 12/21/18 09:03 Normal Saline - IV 12/21/18 09:38 1,000 mls/hr ASDIR STA Administration Lidocaine HCl 20 ml 12/21/18 08:40 12/21/18 09:04 Xylocaine 2% Viscous Oral - MM 12/21/18 08:41 20 ml ONCE ONE Administration Medical Decision Making - Medical Decision Making Pt was seen at bedside, also will be seen by attending Dr. Majano. Pt presenting with substernal chest pain worsening x1 day. 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 Concern for continued chest pain with light-headedness, will evaluate with labs and CT if renal function intact; will evaluate for ACS vs dissection/AAA vs infection vs electrolyte imbalances. Provided 1 g ofirmev, 20 mg IV pepcid, 30 PO maalox, and viscous lidocaine for improvement of discomfort, possible reflux. Will continue to reassess pt and monitor for symptomatic improvement. ECG: NSR, intervals WNL (HR 73, TX 154, QRS 88, QTc 453). No TWIs or significant ST segment changes. No significant changes from prior ECG (09/08/2018 ). 12/21/18 09:36 12/21/18 10:05 CBC and CMP WNL, except for elevated glucose 214 (fasting level) and pt took 40 units insulin this AM. Trop <.02 with no new EKG changes. CTA showed diffusely fatty liver and hepatomegaly. Mild chronic lung disease. No evidence of AAA or aortic dissection. Pt states pain improved after GI cocktail. Due to multiple cardiac risk factors and uncontrolled DM, pt was admitted to PCP service (Dr. Bucio). Pt requires observation and cardiac consult. Pt hemodynamically stable. 12/21/18 12:07 Discharge - Discharge Information Problems reviewed: Yes Clinical Impression/Diagnosis: CAD (coronary artery disease) Qualifiers: Coronary Disease-Associated Artery/Lesion type: unspecified vessel or lesion type [place] vs. transplanted heart: [place] heart Associated angina: with unstable angina Qualified Code(s): I25.110 - Atherosclerotic heart disease of [place] coronary artery with unstable angina pectoris Diabetes Qualifiers: Diabetes mellitus type: type 2 Diabetes mellitus long term acute care registered nurse insulin use: with long term acute care registered nurse use Diabetes mellitus complication status: without complication Qualified Code(s): E11.9 - Type 2 diabetes mellitus without complications; Z79.4 - [facility] (current) use of insulin Chest pain Qualifiers: Chest pain type: unspecified Qualified Code(s): R07.9 - Chest pain, unspecified Condition: Stable - Admission Yes - Follow up/Referral - Patient Discharge Instructions - Post Discharge Activity
--- NOTE | 2018-12-21 08:02 | PDOC ---
Attending Attestation - Resident Resident Name: Isha Giraldo - HPI HPI: 12/21/18 09:24 Pt presents to the ED complaining of a one month history of sharp, stabbing chest pain that was acutely worse today. denies nausea or vomiting, but does complain of lightheadness and shortness of breath. Patient is a pack per day smoker. - Physicial Exam PE: 12/21/18 09:29 Agree with resident exam. Patient is alert and oriented and in no acute distress. Lungs are clear. Heart regular rate and rhythm. Lungs CTA b/l. Abdomen soft, non tender, non distended without guarding or rebound. - Medical Decision Making 12/21/18 09:30 pt presents to the ED complaining of sharp, stabbing chest pain. Patient is hypertensive and diabetic and has multiple risk factors for AAA and ACS. Will check CT chest abdomen pelvis to rule out AAA. If negtive, will admit to medicine for rule out ACS.
[2018-12-21 08:39] LABS: BASO % 0.8 % (0-2.0); EOS % 7.9 % (0-4.5); HEMATOCRIT 37.4 % (35.4-49); LYMPH % 16.4 % (8-40); MCH 30.9 pg (25.7-33.7); MCHC 34.6 g/dl (32.0-35.9); MEAN CELL VOLUME 89.2 fl (80-96); MEAN PLT VOLUME 7.9 fl (7.5-11.1); MONO % 6.2 % (3.8-10.2); NEUT % 68.7 % (42.8-82.8); PLATELET COUNT 287 K/MM3 (134-434); RDW 13.2 % (11.9-15.9); WHITE BLOOD COUNT 10.6 K/mm3 (4.0-10.0)
[2018-12-21] MEDS ORDERED: ACETAMINOPHEN 1000 MG/100 ML VIAL (NON FORMULARY) IVPB ONE (08:39)
[2018-12-21] MEDS ORDERED: MAG HYDROX/AL HYDROX/SIMETH 30 ML UNIT-DOSE CUP PO ONE (08:39)
[2018-12-21] MEDS ORDERED: SODIUM CHLORIDE 1,000 ML IV STA (08:39)
[2018-12-21] MEDS ORDERED: FAMOTIDINE 20 MG/50 ML IVPB 20 MG/50 ML MG IVPB ONE ×2 (08:39→08:46)
[2018-12-21] MEDS ORDERED: LIDOCAINE VISCOUS 2% ORAL/TOP 20 ML UNIT-DOSE CUP MM ONE (08:40)
[2018-12-21] MEDS ORDERED: ACETAMINOPHEN INJECTION 100 ML IVPB ONE (08:45)
[2018-12-21] MEDS ORDERED: LIDOCAINE VISCOUS 2% ORAL/TOP 20 ML UNIT-DOSE CUP ONE (08:45)
[2018-12-21] MEDS ORDERED: MAG HYDROX/AL HYDROX/SIMETH 30 ML UNIT-DOSE CUP ONE (08:46)
[2018-12-21 08:58] LABS: ALBUMIN 3.8 g/dl (3.4-5.0); BILIRUBIN,TOTAL 0.3 mg/dL (0.2-1); BLOOD UREA NITROGEN 18.7 mg/dL (7-18); CALCIUM 9.1 mg/dL (8.5-10.1); CREATININE 1.1 mg/dL (0.55-1.3); POTASSIUM 3.8 mmol/L (3.5-5.1); TOT PROT 7.1 g/dl (6.4-8.2)
[2018-12-21 09:03] LABS: INR 0.88 (0.83-1.09); PROTHROMBIN TIME (PATIENT) 10.4 SEC (9.7-13.0)
[2018-12-21 09:06] LABS: ACTIVATED PTT 31.9 SECONDS (25.2-36.5)
--- NOTE | 2018-12-21 13:13 | EKG ---
Test Reason : Blood Pressure : / mmHG Vent. Rate : 073 BPM Atrial Rate : 073 BPM P-R Int : 154 ms QRS Dur : 088 ms QT Int : 412 ms P-R-T Axes : 079 073 034 degrees QTc Int : 453 ms NORMAL SINUS RHYTHM NORMAL ECG WHEN COMPARED WITH ECG OF 08-SEP-2017 13:07, NO SIGNIFICANT CHANGE WAS FOUND Confirmed by ANASTACIA JEROME MD ([id number]) on 12/21/2018 1:12:43 PM Referred By: Confirmed By:ANASTACIA JEROME MD
[2018-12-21] MEDS ORDERED: metFORMIN HCL 500 MG TABLET (FP) ONE (16:53)
[2018-12-21] MEDS: metFORMIN HCL 500 MG TABLET (FP) PO SCH (17:21)
[2018-12-21 18:44] VITALS: BMI 33.7
[2018-12-21] MEDS ORDERED: FLU VACCINE QUAD 60 MCG/0.5 ML (MDV 19-20) IM ONE (18:44)
[2018-12-21] MEDS: ATORVASTATIN CA 80 MG TABLET (FP) PO SCH (21:22)
[2018-12-21] MEDS: HEPARIN NA (PORCINE) 5,000 UNITS/ML 1ML VIAL SQ SCH (21:22)
[2018-12-21] MEDS: INSULIN (LEVEMIR) 100 UNITS/ML UNITS SQ SCH (21:32)
--- NOTE | 2018-12-21 22:11 | HP ---
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 Cardiovascular: Yes: HTN, Hyperlipdemia Endocrine: Yes: Diabetes Mellitus - Smoking History Smoking history: Former smoker Have you smoked in the past 12 months: No Aproximately how many cigarettes per day: 10 If you are a former smoker, when did you quit?: 2013 - Alcohol/Substance Use Hx Alcohol Use: No Home Medications - Allergies Allergies/Adverse Reactions: Allergies Allergy/AdvReac Type Severity Reaction Status Date / Time No Known Allergies Allergy Verified 09/08/17 11:00 - Home Medications Home Medications: Ambulatory Orders Aspirin [ASA -] 81 mg PO DAILY 02/15/15 Atorvastatin Ca [Lipitor] 80 mg PO HS 02/15/15 Clopidogrel Bisulfate [Clopidogrel] 75 mg PO DAILY 02/15/15 Folic Acid 1 mg PO DAILY 02/15/15 Gabapentin 300 mg PO DAILY 02/15/15 Metoprolol Tartrate [Lopressor -] 25 mg PO DAILY 02/15/15 Omeprazole [Prilosec] 40 mg PO DAILY 02/15/15 Insulin Degludec [Tresiba] 40 unit SQ AM 12/21/18 Losartan Potassium 100 mg PO DAILY 12/21/18 Sitagliptin Phos/Metformin HCl [Janumet 50-1,000 mg Tablet] 1,000 mg PO BID Physical Examination Vital Signs: Vital Signs Temperature 98.2 F 12/21/18 18:43 Pulse Rate 63 12/21/18 18:43 Respiratory Rate 18 12/21/18 18:43 Blood Pressure 144/75 12/21/18 18:43 O2 Sat by Pulse Oximetry (%) 99 12/21/18 18:43 Labs: CBC, BMP 12/21/18 08:15 12/21/18 08:15
[2018-12-22] MEDS: metFORMIN HCL 500 MG TABLET (FP) PO SCH ×2 (06:48→17:24)
[2018-12-22 07:11] LABS: EOS % 10.3 % (0-4.5); HEMATOCRIT 36.9 % (35.4-49); HEMOGLOBIN 12.6 GM/dL (11.7-16.9); LYMPH % 21.4 % (8-40); MCH 30.8 pg (25.7-33.7); MCHC 34.3 g/dl (32.0-35.9); MEAN CELL VOLUME 89.7 fl (80-96); MEAN PLT VOLUME 7.8 fl (7.5-11.1); MONO % 7.5 % (3.8-10.2); NEUT % 59.8 % (42.8-82.8); PLATELET COUNT 278 K/MM3 (134-434); RBC 4.11 M/mm3 (4.00-5.60); RDW 13.5 % (11.9-15.9); WHITE BLOOD COUNT 8.5 K/mm3 (4.0-10.0)
[2018-12-22 07:37] LABS: ALBUMIN 3.4 g/dl (3.4-5.0); BILIRUBIN,TOTAL 0.3 mg/dL (0.2-1); BLOOD UREA NITROGEN 17.1 mg/dL (7-18); CALCIUM 8.9 mg/dL (8.5-10.1); CREATININE 0.9 mg/dL (0.55-1.3); POTASSIUM 3.9 mmol/L (3.5-5.1); TOT PROT 6.4 g/dl (6.4-8.2)
[2018-12-22] MEDS: LOSARTAN POTASSIUM 50 MG TABLET (FP) PO SCH (10:27)
[2018-12-22] MEDS: HEPARIN NA (PORCINE) 5,000 UNITS/ML 1ML VIAL SQ SCH ×2 (10:27→21:32)
[2018-12-22] MEDS: FOLIC ACID 1 MG TABLET (FP) PO SCH (10:28)
[2018-12-22] MEDS: METOPROLOL TARTRATE 25 MG TABLET (FP) PO SCH (10:28)
[2018-12-22] MEDS: ASPIRIN 81 MG CHEWABLE TABLETS PO SCH (10:28)
[2018-12-22] MEDS: PANTOPRAZOLE 40 MG TABLET (FP) PO SCH (10:28)
[2018-12-22] MEDS: GABAPENTIN 300 MG CAPSULE (FP) PO SCH (10:28)
[2018-12-22] MEDS: CLOPIDOGREL BISULFATE 75 MG TABLET (FP) PO SCH (10:28)
--- NOTE | 2018-12-22 10:38 | ECHO ---
Name: THALIA HO Exam:Adult Echocardiogram Study Date: 12/22/2018 09:08 AM Age: 53 yrs Reason For Study: Chest pain Height: 68 in Weight: 220 lb BSA: 2.1 m2 MMode/2D Measurements & Calculations IVSd: 0.86 cm Ao root diam: 3.0 cm LVIDd: 4.8 cm LA dimension: 3.8 cm LVIDs: 3.5 cm LVPWd: 0.87 cm EDV(Teich): 109.1 ml LVOT diam: 2.0 cm ESV(Teich): 51.2 ml Doppler Measurements & Calculations MV E max shawn: 73.5 cm/sec Ao V2 max: 155.5 cm/sec MV A max shawn: 46.4 cm/sec Ao max P.7 mmHg MV E/A: 1.6 Ao V2 mean: 109.3 cm/sec MV dec time: 0.26 sec Ao mean P.4 mmHg Ao V2 VTI: 35.8 cm CHRISTO(I,D): 1.7 cm2 CHRISTO(V,D): 1.8 cm2 LV V1 max P.8 mmHg SV(LVOT): 61.7 ml LV V1 mean P.6 mmHg LV V1 max: 84.3 cm/sec LV V1 mean: 60.1 cm/sec LV V1 VTI: 18.8 cm TR max shawn: 232.6 cm/sec PA V2 max: 115.4 cm/sec TR max P.6 mmHg PA max P.3 mmHg PI end-d shawn: 77.4 cm/sec Med Peak E' Shawn: 9.0 cm/sec Med E/e': 8.2 Lat Peak E' Shawn: 12.7 cm/sec Lat E/e': 5.8 Procedure A complete two-dimensional transthoracic echocardiogram was performed (2D, M-mode, Doppler and color flow Doppler). Left Ventricle The left ventricular size, thickness and function are normal. Ejection Fraction = 65%. Left Ventricul ar Filling pattern is normal for age. The left ventricular wall motion is normal. Right Ventricle The right ventricle is normal in size and function. Atria Normal left and right atrial size and function. Mitral Valve The mitral valve is normal in structure and function. There is trace mitral regurgitation. Tricuspid Valve The tricuspid valve is normal in structure and function. There is trace tricuspid regurgitation. Righ t ventricular systolic pressure is 28 mmhg. Assuming the RA pressure is 5 mmHg. Aortic Valve There is mild aortic valve thickening. Pulmonic Valve Trace pulmonic valvular regurgitation. Great Vessels The aortic root is normal size. Pericardium/Pleura There is no pericardial effusion. There is no pleural effusion. Interpretation Summary The left ventricular size, thickness and function are normal Ejection Fraction = 65%. The right ventricle is normal in size and function. There is trace mitral regurgitation. There is trace tricuspid regurgitation. Right ventricular systolic pressure is 28 mmhg. There is mild aortic valve thickening. Trace pulmonic valvular regurgitation. MD Alcon Rodriguez 12/22/2018 10:38 AM
--- NOTE | 2018-12-22 11:46 | CON.CARD ---
Consult Consult Specialty:: Cardiology Referred by:: Medicine Reason for Consultation:: chest pain - History of Present Illness Chief Complaint: chest pain History of Present Illness: 53M h/o HTN, HLD, DM, CAD s/p two stents in 2013 [place] [facility] [place], on plavix p/w substernal chest pain for the last month worsening today. Pain worse with lying down, deep breaths and worse with palpation. Also with dizziness along wth the chest pain. Pain resolved since yesterday, feels better. Both exertional and at rest. Sees Dr. Dave for cardio, had an echo and stress test within the last year reportedly however records are not available. - Past Medical History [employer]: Yes: CVA Cardio/Vascular: Yes: HTN, Hyperlipdemia Endocrine: Yes: Diabetes Mellitus - Alcohol/Substance Use Hx Alcohol Use: No - Smoking History Smoking history: Former smoker Have you smoked in the past 12 months: No Aproximately how many cigarettes per day: 10 If you are a former smoker, when did you quit?: 2013 Home Medications - Allergies Allergies/Adverse Reactions: Allergies Allergy/AdvReac Type Severity Reaction Status Date / Time No Known Allergies Allergy Verified 09/08/17 11:00 - Home Medications Home Medications: Ambulatory Orders Aspirin [ASA -] 81 mg PO DAILY 02/15/15 Atorvastatin Ca [Lipitor] 80 mg PO HS 02/15/15 Clopidogrel Bisulfate [Clopidogrel] 75 mg PO DAILY 02/15/15 Folic Acid 1 mg PO DAILY 02/15/15 Gabapentin 300 mg PO DAILY 02/15/15 Metoprolol Tartrate [Lopressor -] 25 mg PO DAILY 02/15/15 Omeprazole [Prilosec] 40 mg PO DAILY 02/15/15 Insulin Degludec [Tresiba] 40 unit SQ AM 12/21/18 Losartan Potassium 100 mg PO DAILY 12/21/18 Sitagliptin Phos/Metformin HCl [Janumet 50-1,000 mg Tablet] 1,000 mg PO BID Family Medical History Family History: Unremarkable Review of Systems - Review of Systems Constitutional: reports: No Symptoms Eyes: reports: No Symptoms HENT: reports: No Symptoms Neck: reports: No Symptoms Cardiovascular: reports: No Symptoms Respiratory: reports: No Symptoms Gastrointestinal: reports: No Symptoms Genitourinary: reports: No Symptoms Musculoskeletal: reports: No Symptoms Integumentary: reports: No Symptoms Neurological: reports: No Symptoms Endocrine: reports: No Symptoms Hematology/Lymphatic: reports: No Symptoms Psychiatric: reports: No Symptoms Vital Signs: Vital Signs Temperature 98.3 F 12/22/18 06:00 Pulse Rate 60 12/22/18 06:00 Respiratory Rate 20 12/22/18 06:00 Blood Pressure 142/80 12/22/18 06:00 O2 Sat by Pulse Oximetry (%) 99 12/21/18 21:00 Constitutional: Yes: No Distress, Calm Eyes: Yes: Conjunctiva Clear, EOM Intact HENT: Yes: Atraumatic, Normocephalic Neck: Yes: Supple, Trachea Midline Respiratory: Yes: Regular, CTA Bilaterally Gastrointestinal: Yes: Normal Bowel Sounds, Soft Cardiovascular: Yes: Regular Rate and Rhythm JVD: No Heart Sounds: Yes: S1, S2 Extremities: No: Cold Edema: No Integumentary: No: Jaundice Neurological: Yes: Alert, Oriented Psychiatric: No: Agitated - Other Data Labs, Other Data: CBC, BMP 12/22/18 06:10 12/22/18 06:10 INR, PTT INR 0.88 (0.83-1.09) 12/21/18 08:15 Troponin, BNP 12/21/18 17:47 Troponin I < 0.02 Troponin, BNP 12/21/18 17:47 Troponin I < 0.02 Assessment/Plan EKG: sinus, nl intervals, no ischemic changes CTA chest/abd/pelvis: no aortic dissection, mild chronic lung dz, hepatomegaly diffuse fatty infiltration of liver, no acute pathology of abd echo 11/2018 nl LV function, nl RV, tr MR, tr TR, RVSP 28 mmHg tele: sinus chest pain - echo unremarkable - trop neg x 2, EKG no ischemic changes - unlikely ACS - history of reproducible chest pain, ongoing for one month less typical for cardiac etiology also with epigastric pain, improved with GI cocktail - reportedly had nl stress test as outpatient recently with Dr. Dave, would obtain report - if unremarkable, no further inpatient workup CAD - cont aspirin, statin, plavix, bb HTN - continue current meds HLD - cont statin DM - manage per primary
[2018-12-22] MEDS: INSULIN (LEVEMIR) 100 UNITS/ML UNITS SQ SCH (21:32)
[2018-12-22] MEDS: ATORVASTATIN CA 80 MG TABLET (FP) PO SCH (21:32)
--- NOTE | 2018-12-22 22:54 | PN ---
Progress Note, Physician - Current Medication List Current Medications: Active Medications Aspirin (Asa -) 81 mg PO DAILY [facility] Last Admin: 12/22/18 10:28 Dose: 81 mg Atorvastatin Calcium (Lipitor -) 80 mg PO HS [facility] Last Admin: 12/22/18 21:32 Dose: 80 mg Clopidogrel Bisulfate (Plavix -) 75 mg PO DAILY [facility] Last Admin: 12/22/18 10:28 Dose: 75 mg Folic Acid (Folic Acid -) 1 mg PO DAILY [facility] Last Admin: 12/22/18 10:28 Dose: 1 mg Gabapentin (Neurontin -) 300 mg PO DAILY [facility] Last Admin: 12/22/18 10:28 Dose: 300 mg Heparin Sodium (Porcine) (Heparin -) 5,000 unit SQ BID [facility] Last Admin: 12/22/18 21:32 Dose: 5,000 unit Insulin Detemir (Levemir Vial) 35 units SQ HS [facility] Last Admin: 12/22/18 21:32 Dose: 35 units Losartan Potassium (Cozaar -) 100 mg PO DAILY [facility] Last Admin: 12/22/18 10:27 Dose: 100 mg Metformin HCl (Glucophage -) 1,000 mg PO BID@0700,1630 [facility] Last Admin: 12/22/18 17:24 Dose: Not Given Metoprolol Tartrate (Lopressor -) 25 mg PO DAILY [facility] Last Admin: 12/22/18 10:28 Dose: 25 mg Pantoprazole Sodium (Protonix -) 40 mg PO DAILY [facility] Last Admin: 12/22/18 10:28 Dose: 40 mg Sitagliptin Phosphate (Januvia -) 100 mg PO DAILY@0700 [facility] Last Admin: 12/22/18 06:48 Dose: 100 mg - Objective Vital Signs: Vital Signs Temperature 98.0 F 12/22/18 17:00 Pulse Rate 60 12/22/18 17:00 Respiratory Rate 20 12/22/18 17:00 Blood Pressure 132/75 12/22/18 17:00 O2 Sat by Pulse Oximetry (%) 99 12/22/18 09:00 Labs: CBC, BMP 12/22/18 06:10 12/22/18 06:10 INR, PTT INR 0.88 (0.83-1.09) 12/21/18 08:15
[2018-12-23] MEDS: metFORMIN HCL 500 MG TABLET (FP) PO SCH (06:50)
[2018-12-23] MEDS: LOSARTAN POTASSIUM 50 MG TABLET (FP) PO SCH (10:25)
[2018-12-23] MEDS: PANTOPRAZOLE 40 MG TABLET (FP) PO SCH (10:25)
[2018-12-23] MEDS: CLOPIDOGREL BISULFATE 75 MG TABLET (FP) PO SCH (10:25)
[2018-12-23] MEDS: GABAPENTIN 300 MG CAPSULE (FP) PO SCH (10:25)
[2018-12-23] MEDS: ASPIRIN 81 MG CHEWABLE TABLETS PO SCH (10:25)
[2018-12-23] MEDS: FOLIC ACID 1 MG TABLET (FP) PO SCH (10:25)
[2018-12-23] MEDS: METOPROLOL TARTRATE 25 MG TABLET (FP) PO SCH (10:25)
[2018-12-23] MEDS: HEPARIN NA (PORCINE) 5,000 UNITS/ML 1ML VIAL SQ SCH (10:27)
--- NOTE | 2018-12-23 10:40 | PN ---
Progress Note (short form) - Note Progress Note: s: no chest pain, palps, dizziness, dyspnea. Vital Signs Period Temp Pulse Resp BP Sys/Goodson Pulse Ox Last 24 Hr 98.0 F-98.3 F 58-65 18-20 118-132/58-75 99-100 Constitutional: Yes: No Distress, Calm Eyes: Yes: Conjunctiva Clear, EOM Intact HENT: Yes: Atraumatic, Normocephalic Neck: Yes: Supple, Trachea Midline Respiratory: Yes: Regular, CTA Bilaterally Gastrointestinal: Yes: Normal Bowel Sounds, Soft Cardiovascular: Yes: Regular Rate and Rhythm JVD: No Heart Sounds: Yes: S1, S2 Extremities: No: Cold Edema: No Integumentary: No: Jaundice Neurological: Yes: Alert, Oriented Psychiatric: No: Agitated Assessment/Plan EKG: sinus, nl intervals, no ischemic changes CTA chest/abd/pelvis: no aortic dissection, mild chronic lung dz, hepatomegaly diffuse fatty infiltration of liver, no acute pathology of abd echo 11/2018 nl LV function, nl RV, tr MR, tr TR, RVSP 28 mmHg tele: sinus chest pain - echo unremarkable - trop neg x 2, EKG no ischemic changes - unlikely ACS - history of reproducible chest pain, ongoing for one month less typical for cardiac etiology also with epigastric pain, improved with GI cocktail - reportedly had nl stress test as outpatient recently with Dr. Dave - symptoms resolved, no further cardiac workup as inpatient - advised outpatient cardiology follow up CAD - cont aspirin, statin, plavix, bb HTN - continue current meds HLD - cont statin DM - manage per primary
[2018-12-23 12:11] VITALS: BP 129/81; PULSE 95; TEMP 98.7
== END 2018-12-23 13:37 | disposition home or self-care (01) ==
LOC: JER 07:45 → JERBED 11:31 → UNDOADMOB 11:31 → OBSVTOIN 15:11 → INTOOBSV 15:11 → JERBED 18:27 → J4W 18:27 → JERBED 12-22 10:03 → J4W 12-22 10:03
PROVIDERS: ADMIT Internal Medicine; ATTEND Internal Medicine
PROC: 3E033NZ Introduction of Analgesics, Hypnotics, Sedatives into Peripheral Vein, Percutaneous Approach (ICD-10-PCS; principal; 2018-12-22)
PROC: 3E0337Z Introduction of Electrolytic and Water Balance Substance into Peripheral Vein, Percutaneous Approach (ICD-10-PCS; 2018-12-22)
PROC: 3E033GC Introduction of Other Therapeutic Substance into Peripheral Vein, Percutaneous Approach (ICD-10-PCS; 2018-12-22)
PROC: 3E013VG Introduction of Insulin into Subcutaneous Tissue, Percutaneous Approach (ICD-10-PCS; 2018-12-22)
PROC: 3E013GC Introduction of Other Therapeutic Substance into Subcutaneous Tissue, Percutaneous Approach (ICD-10-PCS; 2018-12-22)
PROC: 3E0234Z Introduction of Serum, Toxoid and Vaccine into Muscle, Percutaneous Approach (ICD-10-PCS; 2018-12-22)
DX: R07.89 Other chest pain (principal); I10 Essential (primary) hypertension; E78.5 Hyperlipidemia, unspecified; E11.9 Type 2 diabetes mellitus without complications; I25.10 Atherosclerotic heart disease of native coronary artery without angina pectoris; I69.354 Hemiplegia and hemiparesis following cerebral infarction affecting left non-dominant side; Z87.891 Personal history of nicotine dependence; Z87.442 Personal history of urinary calculi; Z79.4 Long term (current) use of insulin; Z95.5 Presence of coronary angioplasty implant and graft; Z79.02 Long term (current) use of antithrombotics/antiplatelets; Z79.82 Long term (current) use of aspirin; Z23 Encounter for immunization
CPT/HCPCS: 36415; 71275-TC; 74174-TC; 80053; 82550; 82553; 82962; 84484; 85025; 85610; 85730; 90471; 93005; 93010; 93306-TC; 96361; 96365; 96372; 96375; 99283-25; G0378; J0131; J1644; J7030; Q2036